=== PATIENT | male | born 1965 | race African-American/Black ===

== ENCOUNTER 2018-02-13 07:16 | Day surgery (SDC) | payer OTHER ==
[2018-02-10 14:56] VITALS: BMI 19.8
[2018-02-13 08:48] VITALS: TEMP 97.6
[2018-02-13 10:45] VITALS: BP 105/66; PULSE 66
--- NOTE | 2018-02-14 18:52 | PATH ---
Surgical Pathology Report Patient Name: DENNYS LOJA [facility]. Rec. #: [id number] /Age/Gender: 1965 (Age: 52) / M Account: [id number] Location: [facility]-ENDOSCOPY Taken: 02/13/2018 Received: 02/13/2018 Reported: 02/14/2018 Physicians: Smita Mason M.D. Specimen(s) Received A: BX DUODENUM B: BX ANTRAL ULCER AND ANTRUM Clinical History Anemia, history of ulcer, colon screening Postoperative diagnosis: Antral ulcer Final Diagnosis A. DUODENUM, BIOPSY: DUODENAL MUCOSA WITHOUT SIGNIFICANT PATHOLOGIC FINDINGS. B. STOMACH, ANTRUM, ULCER, BIOPSY: GASTRIC ANTRAL MUCOSA WITH MILD CHRONIC GASTRITIS AND FOCAL EROSION. IMMUNOHISTOCHEMICAL STAIN FOR H. PYLORI IS NEGATIVE. Electronically Signed Nurys Elizalde M.D. Gross Description A. Received in formalin, labeled "duodenum biopsy" are 3 noble, irregular portions of soft tissue ranging from 0.4-0.6 cm. in greatest dimension. The specimens are submitted in toto in one cassette. B. Received in formalin, labeled "antrum biopsy including antral ulcer" are 3 noble, irregular portions of soft tissue ranging from 0.3-0.4 cm. in greatest dimension. The specimens are submitted in toto in one cassette. 02/13/201802/13/2018
== END 2018-02-13 10:20 | disposition home or self-care (01) ==
LOC: JASU-ENDO 07:16
PROVIDERS: ATTEND Internal Medicine Gastroenterology
PROC: 0DB68ZX Excision of Stomach, Via Natural or Artificial Opening Endoscopic, Diagnostic (ICD-10-PCS; 2018-02-13)
PROC: 0DJD8ZZ Inspection of Lower Intestinal Tract, Via Natural or Artificial Opening Endoscopic (ICD-10-PCS; principal; 2018-02-13 08:00)
DX: Z12.11 Encounter for screening for malignant neoplasm of colon (principal); K64.8 Other hemorrhoids; D64.9 Anemia, unspecified; K25.9 Gastric ulcer, unspecified as acute or chronic, without hemorrhage or perforation
CPT/HCPCS: 43239; G0121; 88305-TC; 88342-TC

== ENCOUNTER 2023-08-08 04:55 | Day surgery (SDC) | payer BC ==
[2023-08-05 08:37] VITALS: BMI 22.4
[2023-08-08 09:36] VITALS: TEMP 98
[2023-08-08 09:46] VITALS: RESP 18
[2023-08-08 11:06] VITALS: BP 126/66; PULSE 51
== END 2023-08-08 10:45 | disposition home or self-care (01) ==
LOC: JASU-ENDO 04:55
PROVIDERS: ATTEND Internal Medicine Gastroenterology
PROC: 0DJD8ZZ Inspection of Lower Intestinal Tract, Via Natural or Artificial Opening Endoscopic (ICD-10-PCS; principal; 2023-08-08 09:00)
DX: Z12.11 Encounter for screening for malignant neoplasm of colon (principal); K64.8 Other hemorrhoids